=== PATIENT | female | born 1960 | race African-American/Black ===

== ENCOUNTER 2019-05-16 08:32 | Emergency (ER) | payer OTHER ==
[~2019-05-16] VITALS: Ht 167.6 cm; Wt 92.3 kg
[~2019-05-16 08:32] MED LIST: CEPH-443 PO; HYDR-4011 PO; NAPR-985 PO
[2019-05-16 08:34] VITALS: Ht 167.6 cm; Wt 92.3 kg
[2019-05-16] MEDS ORDERED: ONDANSETRON (ODT) 4 MG TAB ODT STA (08:57)
[2019-05-16] MEDS ORDERED: HYDROCODONE/APAP (5/325) TAB PO ONE (09:00)
[2019-05-16] MEDS ORDERED: CEFAZOLIN 1 GM INJ IM ONE (10:30)
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
[2019-05-16 12:23] VITALS: BP 112/70; PULSE 86; RESP 18
== END 2019-05-16 12:25 | disposition home or self-care (01) ==
LOC: FTE 08:32 → EEVIPCON 08:32 → FTE 12:25
DX: S42.402A Unspecified fracture of lower end of left humerus, initial encounter for closed fracture (principal); I10 Essential (primary) hypertension; S00.03XA Contusion of scalp, initial encounter; H11.31 Conjunctival hemorrhage, right eye; Y08.89XA Assault by other specified means, initial encounter; Z21 Asymptomatic human immunodeficiency virus [HIV] infection status
CPT/HCPCS: 12001; 70450; 70486; 73080; 96372; J0690; Z7502; Z7610